=== PATIENT | male | born 1990 | race Two or more races ===

== ENCOUNTER 2023-09-22 12:06 | Emergency (ER) | payer OTHER ==
[2023-09-22 12:16] VITALS: BP 112/74; PULSE 60; RESP 18; TEMP 97.1; BMI 26.7
[2023-09-22 13:02] LABS: BASO % 0.2 % (0-2.0); EOS % 0.1 % (0-4.5); HEMOGLOBIN 17.4 GM/dL (11.7-16.9); LYMPH % 15.1 % (8-40); MCH 29.8 pg (25.7-33.7); MCHC 34.1 g/dl (32.0-35.9); MEAN CELL VOLUME 87.5 fl (80-96); MEAN PLT VOLUME 6.7 fl (7.5-11.1); MONO % 3.7 % (3.8-10.2); NEUT % 80.9 % (42.8-82.8); PLATELET COUNT 319 10^3/uL (134-434); RBC 5.82 M/mm3 (4.00-5.60); RDW 14.1 % (11.9-15.9); WHITE BLOOD COUNT 11.4 K/mm3 (4.0-10.0)
[2023-09-22] MEDS ORDERED: ONDANSETRON 4 MG/2 ML VIAL ONE (13:08)
[2023-09-22] MEDS ORDERED: BENZOIN/ALOE VERA/STORAX/TOLU 58 ML BOTTLE ONE (13:19)
[2023-09-22] MEDS: ONDANSETRON 4 MG/2 ML VIAL IVPUSH ONE (13:24)
[2023-09-22] MEDS: SODIUM CHLORIDE 0.9% 500 ML INFUS.BAG IV ONE (13:24)
[2023-09-22 13:31] LABS: POTASSIUM 4.2 mmol/L (3.5-5.1)
[2023-09-22 13:33] LABS: ALBUMIN 4.8 g/dl (3.4-5.0); CALCIUM 10.5 mg/dL (8.5-10.1)
[2023-09-22 13:34] LABS: BLOOD UREA NITROGEN 13.8 mg/dL (7-18); MAGNESIUM 2.3 mg/dL (1.8-2.4)
[2023-09-22 13:38] LABS: BILIRUBIN,TOTAL 0.4 mg/dL (0.2-1); TOT PROT 9.1 g/dl (6.4-8.2)
== END 2023-09-22 15:08 | disposition home or self-care (01) ==
LOC: JER 12:06
PROC: 3E030GC Introduction of Other Therapeutic Substance into Peripheral Vein, Open Approach (ICD-10-PCS; principal; 2023-09-22)
DX: R11.2 Nausea with vomiting, unspecified (principal)
CPT/HCPCS: 36415; 80053; 83690; 83735; 85025; 93005; 93010; 99284-25